=== PATIENT | male | born 1990 | race African-American/Black ===

== ENCOUNTER → 2016-07-08 | Outpatient (CLI) | payer SELFPAY | LOC: MW.CHIM 09:35 | PROVIDERS: ATTEND Internal Medicine | DX: Z20.2 Contact with and (suspected) exposure to infections with a predominantly sexual mode of transmission (principal) | CPT/HCPCS: 36415; 81001; 86592; 86707; 86803; 87389; 87491; 87591 ==

== ENCOUNTER 2017-06-11 13:36 | Emergency (ER) | payer SELFPAY ==
[2017-06-11] MEDS ORDERED: Dicyclomine 10 MG Cap PO ONE (14:10)
[2017-06-11] MEDS ORDERED: Ondansetron 4 MG/2 ML SDV IVPUSH ONE (14:10)
--- NOTE | 2017-06-11 14:18 | EDM.PDOC ---
ED HPI GENERAL MEDICAL PROBLEM - General Chief Complaint: Abdominal Pain Stated Complaint: ABDOMINAL PAIN Time Seen by Provider: 06/11/17 14:01 - History of Present Illness INITIAL COMMENTS - FREE TEXT/NARRATIVE: HISTORY AND PHYSICAL: History of present illness: The patient is a 26 y/omale who has a history of intussusception with surgical repair in [facility] in 2014 who presents with a 6 month history of episodic right-sided mid abdominal pain associated with nausea. Patient says that since the surgery he has had episodes of pain but over the last 6 months it is been more consistent but is not continuous. The patient says he has the discomfort almost every day and it's kind of a bloated gassy-like pressure feeling and it's mostly on the right side. Patient says he has nausea after many different types of foods but does not have vomiting until yesterday when he had one episode of Vomiting. The patient has regular bowel movements and they're not black or bloody and he does not have diarrhea. He intermittently will have constipation but is not on a regular basis. The patient says that since his surgery he has not had any studies done such as upper or lower GI or endoscopy is. He has not followed up with a primary care physician or GI specialist. Patient has not seen anybody for this discomfort. He presents today for evaluation because he was having an episode of pain and thought he could have some basic tests performed and he states to me that he knows that he may need more testing. Currently he does not have the pain in the ER but still has some nausea. He's had no fever or upper respiratory symptoms no urinary complaints and no recent trauma. Review of systems: As per history of present illness and below otherwise all systems reviewed and negative. Past medical history: As per history of present illness and as reviewed below otherwise noncontributory. Surgical history: As per history of present illness and as reviewed below otherwise noncontributory. Social history: No reported history of drug or alcohol abuse. Family history: As per history of present illness and as reviewed below otherwise noncontributory. Physical exam: Gen.: Well-developed well-nourished thin man who is nontoxic and vital signs have been reviewed by me. HEENT: Atraumatic, normocephalic, negative for conjunctival pallor or scleral icterus, mucous membranes moist, throat clear, neck supple, nontender, trachea midline. Lungs: Clear to auscultation, breath sounds equal bilaterally, chest nontender. Heart: S1S2, regular in rhythm no overt murmurs Abdomen: Soft, nondistended, nontender. There is palpable gas on my exam there is no tenderness no rebound and no guarding. Bowel sounds are normoactive. Negative for masses or hepatosplenomegaly. Negative for costovertebral tenderness. Pelvis: Stable nontender. Genitourinary: Deferred. Rectal: Deferred. Extremities: Atraumatic, negative for cords or calf pain. Neurovascular unremarkable. Neuro: Awake, alert, oriented. Cranial nerves II through XII unremarkable. Cerebellum unremarkable. Motor and sensory unremarkable throughout. Exam nonfocal. Diagnostics: CBC CMP amylase lipase abdominal x-rays Therapeutics: Marv Nur I discussed with patient and family at bedside TESTING results which currently are within normal limits. At this point because he is not having abdominal pain I do not feel the CAT scan is indicated as all of his other tests or negative. I 've advised him to follow-up with one of our providers in either the primary care/family practice clinic or one of our surgeons for further testing regarding this episodic chronic abdominal pain. He states understanding. I've also talked with him about starting a food journal to see if there is any association with particular foods triggering his abdominal cramping and nausea Impression: Episodic abdominal pain and nausea acute on chronic Definitive disposition and diagnosis as appropriate pending reevaluation and review of above. Abdominal Pain Score (Numeric/FACES): 6 - Related Data Allergies Allergy/AdvReac Type Severity Reaction Status Date / Time No Known Allergies Allergy Verified 06/11/17 13:52 Home Meds: Home Meds . [No Known Home Meds] 06/11/17 [History] Past Medical History Gastrointestinal History: Reports: Other (See Below) Other Gastrointestinal History: intussuseption - Infectious Disease History Infectious Disease History: Reports: Shingles Social & Family History - Family History Family Medical History: Noncontributory - Tobacco Use Smoking Status *Q: Current Every Day Smoker Years of Tobacco use: 7 Packs/Tins Daily: 0.5 - Caffeine Use Caffeine Use: Reports: Coffee - Recreational Drug Use Recreational Drug Use: No ED ROS GENERAL - Review of Systems Review Of Systems: ROS reveals no pertinent complaints other than HPI. ED EXAM, GENERAL - Physical Exam Exam: See Below (See dictation) Course - Vital Signs Last Recorded V/S: Last Vital Signs Temp 36.8 C 06/11/17 13:48 Pulse 76 06/11/17 13:48 Resp 18 06/11/17 13:48 BP 127/71 06/11/17 13:48 Pulse Ox 99 06/11/17 13:48 - Orders/Labs/Meds Labs: Laboratory Tests 06/11/17 06/11/17 Range/Units 14:21 14:21 WBC 5.05 (4.0-11.0) K/uL RBC 4.71 (4.50-5.90) M/uL Hgb 14.8 (13.0-17.0) g/dL Hct 42.0 (38.0-50.0) % MCV 89.2 (80.0-98.0) fL MCH 31.4 (27.0-32.0) pg MCHC 35.2 (31.0-37.0) g/dL RDW Std Deviation 38.3 (28.0-62.0) fl RDW Coeff of Scott 12 (11.0-15.0) % Plt Count 198 (150-400) K/uL MPV 8.50 (7.40-12.00) fL Neut % (Auto) 49.1 (48.0-80.0) % Lymph % (Auto) 37.4 (16.0-40.0) % [place] % (Auto) 11.3 (0.0-15.0) % Eos % (Auto) 1.8 (0.0-7.0) % Baso % (Auto) 0.4 (0.0-1.5) % Neut # (Auto) 2.5 (1.4-5.7) K/uL Lymph # (Auto) 1.9 (0.6-2.4) K/uL [place] # (Auto) 0.6 (0.0-0.8) K/uL Eos # (Auto) 0.1 (0.0-0.7) K/uL Baso # (Auto) 0.0 (0.0-0.1) K/uL Nucleated RBC % 0.0 /100WBC Nucleated RBCs # 0 K/uL Sodium 140 (136-146) mmol/L Potassium 3.5 (3.5-5.1) mmol/L Chloride 106 (98-110) mmol/L Carbon Dioxide 21 (21-31) mmol/L BUN 17 (6.0-23.0) mg/dL Creatinine 0.9 (0.6-1.5) mg/dL Est Cr Clr Drug Dosing 125.61 mL/min Estimated GFR (MDRD) > 60.0 ml/min Glucose 73 (60-110) mg/dL Calcium 9.1 (8.8-10.8) mg/dL Total Bilirubin 0.6 (0.1-1.5) mg/dL AST 36 (5-40) IU/L ALT 34 (8-54) IU/L Alkaline Phosphatase 71 (40-150) Total Protein 7.3 (6.0-8.0) g/dL Albumin 4.3 (3.5-5.0) g/dL Globulin 3.0 (2.0-3.5) g/dL Albumin/Globulin Ratio 1.4 (1.3-2.8) Amylase 58 (10-90) U/L Lipase 18 (7-80) U/L Meds: Medications Discontinued Medications Generic Name Dose Route Start Last Admin Trade Name Freq PRN Reason Stop Dose Admin Dicyclomine HCl 20 mg 06/11/17 14:10 06/11/17 14:39 Bentyl PO 06/11/17 14:11 20 mg ONETIME ONE Administration Ondansetron HCl 4 mg 06/11/17 14:10 06/11/17 14:39 Zofran IVPUSH 06/11/17 14:11 4 mg ONETIME ONE Administration Departure - Departure Time of Disposition: 15:22 Disposition: Home, Self-Care 01 Condition: Good Clinical Impression: Abdominal pain Qualifiers: Abdominal location: unspecified location Qualified Code(s): R10.9 - Unspecified abdominal pain - Discharge Information Referrals: PCP,None [Primary Care Provider] - Forms: ED Department Discharge Additional Instructions: The following information is given to patients seen in the emergency department who are being discharged to home. This information is to outline your options for follow-up care. We provide all patients seen in our emergency department with a follow-up referral. The need for follow-up, as well as the timing and circumstances, are variable depending upon the specifics of your emergency department visit. If you don't have a primary care physician on staff, we will provide you with a referral. We always advise you to contact your personal physician following an emergency department visit to inform them of the circumstance of the visit and for follow-up with them and/or the need for any referrals to a consulting specialist. The emergency department will also refer you to a specialist when appropriate. This referral assures that you have the opportunity for followup care with a specialist. All of these measure are taken in an effort to provide you with optimal care, which includes your followup. Under all circumstances we always encourage you to contact your private physician who remains a resource for coordinating your care. When calling for followup care, please make the office aware that this follow-up is from your recent emergency room visit. If for any reason you are refused follow-up, please contact the [facility] emergency department at and ask to speak to the emergency department charge nurse. [facility] [address] [place] [id number] [facility] Specialty Care-General Surgery Professional Building [address] [place] [id number] Please push hydration and avoid junk foods fast foods and caffeinated products. Please start a food journal documenting the foods that you're eating and any pain you're experiencing or nausea to help assist the provider in guiding the next step in your treatment plan. Please call one of our providers in the clinic for further care and evaluation as we discussed and return to ER as needed and as discussed. You can use the Zofran and Bentyl you have been prescribed for nausea and cramping pain.
[2017-06-11 14:53] LABS: CHLORIDE,CL 106 mmol/L (98-110); SODIUM,NA 140 mmol/L (136-146)
--- NOTE | 2017-06-11 15:10 | CR ---
Abdomen series with chest radiograph Clinical history abdominal pain Comparison: None Findings: Chest portion examination shows no acute pulmonary disease and no free air below the diaphr agms. The abdomen radiographs show a nonspecific bowel gas pattern with no abnormal calcifications. Impression: Nonspecific abdominal findings
== END 2017-06-11 15:40 | disposition home or self-care (01) ==
LOC: MW.ED 13:36
DX: R10.9 Unspecified abdominal pain (principal); R11.0 Nausea; F17.210 Nicotine dependence, cigarettes, uncomplicated; Z98.890 Other specified postprocedural states
CPT/HCPCS: 36415; 74022; 80053; 82150; 83690; 85025; 96374; 99284; A9270; J2405; 99283